=== PATIENT | female | born 2005 | race Two or more races ===

== ENCOUNTER 2023-02-05 13:18 | Emergency (ER) | payer MEDICAID, OTHER ==
[~2023-02-05] VITALS: Ht 162.6 cm; Wt 64.5 kg
[2023-02-05 16:34] VITALS: BP 141/88; PULSE 102; RESP 14; TEMP 99.5; O2SAT 99
[2023-02-05] MEDS ORDERED: cefTRIAXone SOD 1,000 MG VL IM ONE (17:45)
[2023-02-05] MEDS ORDERED: ACETAMINOPHEN 500 MG TAB PO ONE (17:45)
[2023-02-05] MEDS ORDERED: AUG875T PO (17:46)
[2023-02-05] MEDS ORDERED: ACET1CAP14 PO (17:46)
== END 2023-02-05 18:08 | disposition home or self-care (01) ==
LOC: ER 13:18
DX: H66.92 Otitis media, unspecified, left ear (principal)
CPT/HCPCS: 96372; 99283; J0696

== ENCOUNTER 2024-07-19 21:33 | Emergency (ER) | payer MEDICAID ==
[~2024-07-19] VITALS: Ht 162.6 cm; Wt 65.4 kg
[~2024-07-19 21:33] MED LIST: ACET1CAP14 PO; AUG875T PO
[2024-07-20 01:34] VITALS: BP 119/65; TEMP 97.8
[2024-07-20 02:10] VITALS: PULSE 87; RESP 14; O2SAT 98
[2024-07-20] MEDS: IBUPROFEN 600 MG TAB PO ONE (02:10)
[2024-07-20] MEDS ORDERED: IBUP-1456 PO (02:26)
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
== END 2024-07-20 02:37 | disposition home or self-care (01) ==
LOC: ER 21:41
DX: S33.5XXA Sprain of ligaments of lumbar spine, initial encounter (principal); Z79.899 Other long term (current) drug therapy; X58.XXXA Exposure to other specified factors, initial encounter; Y93.89 Activity, other specified; Y92.89 Other specified places as the place of occurrence of the external cause; Y99.8 Other external cause status